=== PATIENT | male | born 1955 | race Caucasian/White ===

== ENCOUNTER 2017-01-24 14:19 | Emergency (ER) | payer OTHER ==
[2017-01-24 15:06] LABS: BASOPHIL 0.6 % (0-2); EOSINOPHIL 1.2 % (0-5); HCT 45.4 % (42.0-52.0); HGB 15.1 g/dl (13.2-18.0); LYMPHOCYTE 19.4 % (15-48); MCH 30.3 pg (25.0-31.0); MCHC 33.3 g/dL (32.0-36.0); MCV 91.2 fL (78.0-100.0); MONOCYTE 10.5 % (0-12); MPV 10.1 fL (6.0-9.5); NEUTROPHIL 68.3 % (41-80); PLT 296 K/uL (150-400); RBC 4.98 M/uL (4.70-6.00); RDW 12.1 % (11.5-14.0)
[2017-01-24 15:11] LABS: INR 1.12 (0.9-1.2)
[2017-01-24 15:12] LABS: PTT 38.4 SECONDS (23.2-31.4)
[2017-01-24 15:41] LABS: ALBUMIN 4.6 g/dL (3.4-4.8); BILIRUBIN - TOTAL 1.1 mg/dL (0.1-1.0); CREATININE 1.1 mg/dL (0.7-1.2); TOTAL PROTEIN 7.6 g/dL (6.4-8.3)
== END 2017-01-24 17:08 | disposition other institution (70) ==
LOC: FER 14:19
PROVIDERS: Emergency Medicine
DX: G93.9 Disorder of brain, unspecified (principal); R29.708 NIHSS score 8
CPT/HCPCS: 36415; 70450; 71010; 80053; 82550; 85025; 85610; 85730; 93005; J1100